=== PATIENT | female | born 1965 | race Caucasian/White ===

== ENCOUNTER → 2019-08-16 | Outpatient (CLI) | payer OTHER ==
[~2019-08-16] MED LIST: CELEBREX 200 M200 MG PO; CYMBALTA60 MG PO; DIVIGEL0.25 MG; IBUPROFEN 600600 M1 PO; LORTAB PO; MIRALAX255 GM
== END ==
LOC: CAT 13:57
DX: Z13.6 Encounter for screening for cardiovascular disorders (principal); I25.10 Atherosclerotic heart disease of native coronary artery without angina pectoris; E78.00 Pure hypercholesterolemia, unspecified